=== PATIENT | female | born 1985 | race Caucasian/White ===

== ENCOUNTER 2020-04-16 15:39 | Emergency (ER) | payer MEDICAID ==
[~2020-04-16] VITALS: Ht 139.7 cm; Wt 100.0 kg
--- NOTE | 2020-04-16 18:15 | NUR ---
pt to ct scan.
--- NOTE | 2020-04-16 18:25 | NUR ---
Pt resting in bed verbalizes understanding of waiting for CT scan results
--- NOTE | 2020-04-16 20:46 | NUR ---
jose roberto Brenner is applying ortho orders for knee imobilizer. Pt in position of comfort
[2020-04-16 21:47] VITALS: BP 103/63
== END 2020-04-16 21:52 | disposition home or self-care (01) ==
LOC: ER 15:40
DX: S82.201A Unspecified fracture of shaft of right tibia, initial encounter for closed fracture (principal); Q05.9 Spina bifida, unspecified; X58.XXXA Exposure to other specified factors, initial encounter; Y93.89 Activity, other specified; Y92.89 Other specified places as the place of occurrence of the external cause; Y99.8 Other external cause status
CPT/HCPCS: 29505; 73564; 73700; 99284